=== PATIENT | male | born 1955 | race Caucasian/White ===

== ENCOUNTER 2019-09-16 00:09 | Inpatient (IN) | payer OTHER ==
[~2019-09-16] VITALS: Ht 172.7 cm; Wt 109.8 kg
[2019-09-16] VITALS (17 sets, daily range): BP systolic 126–177; BP diastolic 61–115
[2019-09-16] MEDS ORDERED: ASPIR 8181 M1 PO (00:20)
[2019-09-16] MEDS ORDERED: NORVASC10 MG PO (00:21)
[2019-09-16] MEDS ORDERED: ZYRTEC10 M5 PO (00:21)
[2019-09-16] MEDS ORDERED: NAPROSYN500 M1 PO (00:22)
[2019-09-16 00:34] LABS: ABSOLUTE BASOPHILS 0.1 thou/uL (0.0-0.2); ABSOLUTE EOSINOPHILS 0.1 thou/uL (0.0-0.7); ABSOLUTE LYMPHOCYTES 2.8 thou/uL (0.8-5.3); ABSOLUTE MONOCYTES 0.8 thou/uL (0.0-1.2); EOSINOPHILS 2.1 %; HEMATOCRIT 45.1 % (42.0-52.0); MCH 30.9 pg (26.0-34.0); MCHC 35.4 g/dL (28.0-37.0); MCV 87.3 fL (80.0-100.0); MONOCYTES 12.1 %; NUCLEATED RBCS 0 /100WBC; PLATELET COUNT* 251 thou/uL (150-400); POLYS 43.8 %; RBC 5.17 mil/uL (4.50-6.00); RDW-CV 13.4 % (10.5-14.5); WBC 6.8 thou/uL (4.0-11.0)
[2019-09-16 00:35] LABS: URINE BILIRUBIN NEGATIVE (Negative); URINE BLOOD NEGATIVE (Negative); URINE CLARITY CLEAR; URINE COLOR YELLOW; URINE GLUCOSE-RANDOM NEGATIVE (Negative); URINE KETONES NEGATIVE (Negative); URINE LEUKOCYTES-REFLEX NEGATIVE (Negative); URINE NITRITE-REFLEX NEGATIVE (Negative); URINE PROTEIN NEGATIVE (Negative); URINE UROBILINOGEN 0.2 E.U./dl (0.2-1.0)
[2019-09-16 00:39] LABS: CALCIUM 8.9 mg/dL (8.5-10.1); CREATININE 1.3 mg/dL (0.6-1.3); POTASSIUM 3.4 mmol/L (3.5-5.1)
[2019-09-16 00:49] LABS: ALBUMIN 4.8 g/dL (3.4-5.0); TOTAL BILIRUBIN 0.5 mg/dL (<0.1-1.0); TOTAL PROTEIN 8.3 g/dL (6.4-8.2)
[2019-09-16 00:51] LABS: PROTIME 10.5 Seconds (9.20-11.50)
--- NOTE | 2019-09-16 13:10 | CARD ---
[facility] [address] [place] [address] CARDIAC CATH REPORT Name: JEAN-CLAUDERANDA Kavita Room: [address] IN [facility]#: [id number] Admission: 09/16/19 Attend Phys: Edmund Loya Discharge: Date of : 59 Report #: [id number] THIS REPORT FOR: //name// APPROVED REPORT Study performed: 09/16/2019 10:28:50 Patient Details Patient Status: In-Patient Room #: Event Personnel Dr. Weinberg Procedures Performed Left heart catheterization left ventriculography selective coronary arteriography and percutaneous intervention with deployment of sequential drug-eluting stents at the site of 90% mid LAD stenosis Indication Non-STEMI , Arrhythmia Risk Factors Family History, Hypercholesterolemia Admission/Lab Medications/Medications given during procedure Angiomax bolus and infusion Procedure Narrative The patient was brought electively to the Cardiac Catheterization Laboratory and was prepped and draped in a sterile manner. The right femoral was infiltrated with 2% Lidocaine subcutaneous anesthesia. A 6 Romansh sheath was inserted into the right femoral artery. Coronary angiography was performed using coronary diagnostic catheters. The right coronary system was accessed and visualized with a Diagnostic catheter. The left coronary system was accessed and visualized with a Diagnostic catheter. The left ventricle was accessed and visualized with a Diagnostic catheter. Left ventricular/Aortic Valve gradient assessed via catheter pullback. Left ventriculogram was performed in STEPHEN projection. Pre-demployment femoral angiogram was performed . Closure device was deployed with a 6 Fr Angioseal. There was no hematoma. Diagnostic Cath Left Main 0% narrowing [facility] [address] [place] [address] CARDIAC CATH REPORT Name: RANDA BERMEO Room: [address] IN [facility]#: [id number] Admission: 09/16/19 Attend Phys: Edmund Loya Discharge: Date of : 59 Report #: [id number] LAD 90% mid vessel stenosis with 50% distal LAD narrowing Circumflex Nondominant vessel with 50% proximal and 50% narrowing of the midportion of the prominent marginal branch Right Coronary Dominant vessel with 40% mid vessel narrowing Left Ventriculography The left ventricle is normal in size with slightly decreased contractility. The left ventricular ejection fraction is estimated to be 50%. Left ventricular wall motion abnormalities are present. There is no mitral insufficiency. Mild anteroapical hypokinesis is noted. Hemodynamics The aortic pressure is 140/70 mmHg with a mean of 84 mmHg. The left ventricular end diastolic pressure is 22 mmHg. There was no gradient across the aortic valve upon pullback. PCI Technique Lesion Anticoagulation was achieved with Angiomax. Percutaneous coronary intervention was performed on the mid LAD. The lesion stenosis prior to intervention was 90% with ELEN 3 flow. A 6 Romansh XB LAD 4.0 Guide Catheter was used to engage the left ostium. A 014 [employer] flex Interventional Guidewire was used to cross the lesion. STENT DEPLOYMENT A drug-eluting stent 2.5 x 18 hoda, 2.25x8 was inserted and inflated up to 14atm for 15seconds. POST STENT DEPLOYMENT BALLOON DILATION A Balloon catheter 2.5 x 12 NC trek was inserted and inflated up to 12-18atm for 15seconds. Final angiography reveals 0 % stenosis with ELEN 3 flow. Conclusion #1 significant coronary artery disease characterized by the following: A 90% mid LAD stenosis with 50% distal LAD narrowing B tandem 50% proximal and mid vessel stenosis in a prominent marginal branch of the nondominant circumflex C dominant right coronary artery with 40% [place] [address] CARDIAC CATH REPORT Name: RANDA BERMEO Room: [address] IN [facility]#: [id number] Admission: 09/16/19 Attend Phys: Edmund Loya Discharge: Date of : 59 Report #: [id number] #2 mild impairment in global LV function, estimate ejection fraction being 50% with anteroapical hypokinesis #3 moderate elevation of left ventricular end-diastolic pressure at rest #4 successful percutaneous coronary intervention with deployment of sequential drug-eluting stents at the site of 90% mid LAD stenosis with 0% residual narrowing and ELEN-3 flow to the distal vessel Recommendations Cardiac Rehabilitation Referral Cardiac Risk Reduction Program Aggressive Medical Therapy Medications Administered Aspirin (any) Prasugrel Diagnostic Cath Approved by: Brian Weinberg MD Date/Time: 09/16/2019 13:07:54 <ELECTRONICALLY SIGNED> By: Brian Weinberg MD, [facility] 09/16/191309 09 09Brian Weinberg MD, FAC /INF
[2019-09-17 03:55] VITALS: BP 146/90
[2019-09-17 05:04] LABS: ABSOLUTE EOSINOPHILS 0.2 thou/uL (0.0-0.7); ABSOLUTE LYMPHOCYTES 2.3 thou/uL (0.8-5.3); ABSOLUTE MONOCYTES 1.1 thou/uL (0.0-1.2); ABSOLUTE NEUTROPHILS 4.6 thou/uL (1.6-8.1); BASOPHILS 0.4 %; EOSINOPHILS 1.9 %; HEMATOCRIT 40.5 % (42.0-52.0); MCH 30.7 pg (26.0-34.0); MCHC 34.7 g/dL (28.0-37.0); MCV 88.5 fL (80.0-100.0); MONOCYTES 13.4 %; MPV 9.2 fl. (7.2-11.1); NUCLEATED RBCS 0 /100WBC; PLATELET COUNT* 220 thou/uL (150-400); POLYS 56.3 %; RBC 4.57 mil/uL (4.50-6.00); RDW-CV 13.2 % (10.5-14.5); WBC 8.3 thou/uL (4.0-11.0)
[2019-09-17 05:17] LABS: ALBUMIN 3.8 g/dL (3.4-5.0); CALCIUM 8.5 mg/dL (8.5-10.1); POTASSIUM 3.2 mmol/L (3.5-5.1); TOTAL PROTEIN 6.7 g/dL (6.4-8.2)
[2019-09-17 05:31] LABS: CHOLESTEROL 155 mg/dL (<200); HDL CHOLESTEROL 42 mg/dL (>40); LDL CHOLESTEROL 93 mg/dL (<100); TC:HDL 3.7 Ratio (Not establshd); TRIGLYCERIDE 101 mg/dL (<150); VLDL 20 mg/dL (<40)
[2019-09-17 05:41] LABS: SERUM ASSESSMENT CLEAR
[2019-09-17 06:05] LABS: TROPONIN-I LEVEL 13.71 ng/mL (<0.06)
[2019-09-17 09:00] VITALS: BP 135/91
[2019-09-17 09:32] VITALS: BP 135/91
--- NOTE | 2019-09-17 11:10 | CON ---
[address] [address] CONSULTATION Name: RANDA BERMEO Room: [address] IN .R.#: [id number] Admission: 09/16/19 Attend Phys: Edmund Loya Discharge: Date of : 59 Report #: [id number] THIS REPORT FOR: //name// CC: BLAKE physician/PCP Osman Sheppard DATE OF SERVICE: 09/16/2019 HISTORY OF PRESENT ILLNESS: The patient is a 64-year-old white male, who I was asked to see in the hospital after he complained of chest pain. The patient has no previous history of heart disease. He does try to exercise on a regular basis. He was doing well until 3 nights ago, he went to bed, awakened during the night to go to the bathroom, felt a pressure in his chest. It lasted about an hour and it went away. At the next time, he again had an episode of discomfort in his chest, went into his neck. It lasted about an hour and resolved. Last night, he went to bed about midnight. He woke up an hour later with discomfort in his chest, went into his neck. Denies shortness of breath, diaphoresis, nausea. Denied the pain being related to the food. He has had no fever, cough, bleeding. His brought him to the Emergency Room. He has had no further chest pain since that time. He denies exertional dyspnea, palpitations, syncope, peripheral edema. PAST MEDICAL HISTORY: He has had previous removal of a skin cancer, tonsillectomy, vasectomy, ganglion cyst removal. He has a history of hypertension. MEDICATIONS: Include Norvasc, Zyrtec, Naprosyn, aspirin. ALLERGIES: He has previous INTOLERANCE TO CEPHALEXIN. FAMILY HISTORY: Positive for heart disease. SOCIAL HISTORY: He is . He and his live here in [place]. 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 No smoking. Rarely drinks alcohol. REVIEW OF SYSTEMS: He has had no history of stroke, asthma, peptic ulcer disease, liver disease, kidney disease, skin problems, psychiatric illness. PHYSICAL EXAMINATION: GENERAL: Revealed a middle-aged male, lying in bed, he appeared in no distress. VITAL SIGNS: He had a blood pressure of 140/80, pulse is 60. He is afebrile. HEENT: He was anicteric. Conjunctivae are pink. Mucous membranes moist. NECK: Veins nondistended. No carotid bruits. Neck supple. CHEST: Clear to auscultation. CARDIOVASCULAR: [place] [address] CONSULTATION Name: JEAN-CLAUDERANDA Kavita Room: [address] IN ..#: [id number] Admission: 09/16/19 Attend Phys: Edmund Loya Discharge: Date of : 59 Report #: [id number] ABDOMEN: Soft. EXTREMITIES: Had no edema. SKIN: Warm and dry. NEUROLOGIC: Nonfocal. PSYCHIATRIC: Appropriate. RADIOLOGICAL DATA: His ECG on admission showed a sinus rhythm, PAC. There was nonspecific T-wave changes. Followup ECG showed a sinus carmen with again nonspecific T-wave changes. His lab work last night, he had a portable chest x-ray that showed mild cardiomegaly, no pulmonary edema. LABORATORY DATA: Sodium of 144, potassium of 3.4, creatinine 1.3, glucose 109. On admission last night, his troponin is 0.17, today it is 2.15. White blood cell count of 6.8, hemoglobin 16. His urinalysis last night, negative for protein. IMPRESSION AND RECOMMENDATIONS: 1. Non-ST elevation myocardial infarction. Recommend cardiac catheterization. 2. Hypertension. The patient is on a calcium alessandra. 3. History of removal of a skin cancer. <ELECTRONICALLY SIGNED> By: Juwan Gutierrez MD, [facility] 09/17/19 1110 0838 [id number] Gutierrez MD, FACC /nt
--- NOTE | 2019-09-17 11:15 | EKG ---
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
--- NOTE | 2019-09-17 11:15 | EKG ---
[place] [address] ELECTROCARDIOGRAM REPORT Name: RANDA BERMEO Room: [address] ADM IN [facility].#: [id number] Admission: 09/16/19 Attend Phys: Edmund Loya Discharge: Date of : 59 Report #: [id number] THIS REPORT FOR: //name// [facility] ED Test Date: 2019-09-16 Test Time: 00:14:50 Pat Name: RANDA BERMEO Department: Room: [facility] Gender: M Traffic Rate Computer: MARIE : 1955 Requested By: Latia Monique Order Number: [id number] MD: Juwan Gutierrez Measurements Intervals [place] Rate: 63 P: 27 ID: 199 QRS: -23 QRSD: 100 T: -19 QT: 425 QTc: 436 Interpretive Statements Sinus rhythm supraventricular premature complex Borderline left axis deviation Abnormal R-wave progression, late transition Nonspecific T abnormalities, inferior leads No previous ECG available for comparison Electronically Signed On 09-17-2019 11:15:15 TRANSFERRER by Juwan Gutierrez [email or web address] <ELECTRONICALLY SIGNED> By: Juwan Gutierrez MD, FAC 09/17/19 1115 0014 0014 Juwan Gutierrez MD, [facility] /EPI
--- NOTE | 2019-09-17 11:21 | EKG ---
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 Juwan Gutierrez MD, FACC /EPI
--- NOTE | 2019-09-17 11:26 | EKG ---
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
[2019-09-17 16:33] VITALS: BP 154/81
[2019-09-17 20:00] VITALS: BP 142/81
[2019-09-18 00:21] VITALS: BP 141/80
[2019-09-18 04:01] VITALS: BP 127/76
[2019-09-18 07:54] VITALS: BP 145/91
[2019-09-18] MEDS ORDERED: LIPITOR40 MG PO (09:39)
[2019-09-18] MEDS ORDERED: LISINOPRIL5 MG PO (09:40)
[2019-09-18] MEDS ORDERED: EFFIENT10 MG PO (09:41)
[2019-09-18 09:42] VITALS: BP 145/91
[2019-09-18 10:25] VITALS: BP 145/91
[2019-09-18 11:28] VITALS: BP 145/91
== END 2019-09-18 11:42 | disposition home or self-care (01) | DRG 246 ==
LOC: M.ERS 00:09 → M.TBA-ER 02:26 → M.2W 02:26
PROVIDERS: Emergency Medicine; Internal Medicine; Internal Medicine Cardiovascular Disease; ADMIT Internal Medicine
PROC: 4A023N7 Measurement of Cardiac Sampling and Pressure, Left Heart, Percutaneous Approach (ICD-10-PCS; principal; 2019-09-16)
PROC: 027035Z Dilation of Coronary Artery, One Artery with Two Drug-eluting Intraluminal Devices, Percutaneous Approach (ICD-10-PCS; principal; 2019-09-16)
PROC: B41F1ZZ Fluoroscopy of Right Lower Extremity Arteries using Low Osmolar Contrast (ICD-10-PCS; principal; 2019-09-16)
PROC: B2111ZZ Fluoroscopy of Multiple Coronary Arteries using Low Osmolar Contrast (ICD-10-PCS; principal; 2019-09-16)
PROC: B2151ZZ Fluoroscopy of Left Heart using Low Osmolar Contrast (ICD-10-PCS; principal; 2019-09-16)
DX: I21.4 Non-ST elevation (NSTEMI) myocardial infarction (principal); I50.31 Acute diastolic (congestive) heart failure; I11.0 Hypertensive heart disease with heart failure; E66.9 Obesity, unspecified; Z85.828 Personal history of other malignant neoplasm of skin; Z98.52 Vasectomy status; Z79.899 Other long term (current) drug therapy; Z88.1 Allergy status to other antibiotic agents; Z79.84 Long term (current) use of oral hypoglycemic drugs; Z79.82 Long term (current) use of aspirin; Z68.36 Body mass index [BMI] 36.0-36.9, adult

== ENCOUNTER → 2020-01-01 | Outpatient (CLI) | payer OTHER ==
[~2020-01-01] MED LIST: ASPIR 8181 M1 PO; EFFIENT10 MG PO; LIPITOR40 MG PO; LISINOPRIL5 MG PO; NAPROSYN500 M1 PO; NORVASC10 MG PO; ZYRTEC10 M5 PO
--- NOTE | 2020-01-09 23:31 | SLEEP ---
[address] [address] SLEEP STUDY REPORT Name: RANDA BERMEO Room: [facility]#: [id number] Admission: 01/01/20 Attend Phys: Kaylene Oreilly RN Discharge: Date of : 59 Report #: [id number] THIS REPORT FOR: //name// CC: RANDA Oreilly This study has been reviewed in its entirety by a board certified sleep specialist DATE OF SERVICE: 01/01/2020 SLEEP STUDY The patient is a 64-year-old who weighs 234 pounds with a BMI of 35.6. The patient's Rowlett score was 4. The patient underwent home sleep study performed by [facility]. Total recording time was 418 minutes. During the night of the study, the patient had 5 obstructive apneas, 7 central apneas, no mixed apneas and 59 hypopneas. The patient's AHI was 10.4 per hour with a supine AHI of 10.2 per hour. Nocturnal oximetry study revealed an average oxygen saturation of 93% with lowest of 88%. Mean heart rate 48 beats per minute with a maximum 85 beats per minute. IMPRESSION: 1. Mild obstructive sleep apnea at an AHI of 10.4 per hour. 2. No clinically significant nocturnal hypoxia. RECOMMENDATIONS: 1. The patient has mild sleep apnea. I would recommend weight loss as initial form of treatment. 2. If the patient remains clinically symptomatic or has comorbid conditions, then consider treatment of sleep apnea with either CPAP versus oral appliance. 3. Avoid ROUSTABOUT CREW PUSHER depressants. 4. Cautioned regarding driving until symptoms of sleep apnea resolve with the above recommendations. <ELECTRONICALLY SIGNED> By: Ceasar Joseph MD 01/09/20 2331 1503 1616Aman Ashley Joseph MD /nt
== END ==
LOC: M.SLEEPLAB 16:26
DX: G47.30 Sleep apnea, unspecified (principal); I10 Essential (primary) hypertension

== ENCOUNTER 2020-01-12 07:45 | Observation (INO) | payer OTHER ==
[2020-01-12] VITALS (10 sets, daily range): BP systolic 119–155; BP diastolic 75–96
[~2020-01-12] VITALS: Ht 172.7 cm; Wt 104.3 kg
[~2020-01-12 07:45] MED LIST changes: +CLONIDINE HCL0.2 M2 PO; +COZAAR 25 MG TA25 M1 PO; +HYDROCHLOROTHIA25 M2 PO; +PROCARDIA XL30 MG PO
[2020-01-12 08:41] LABS: APTT 26.5 Seconds (25.0-31.3); INR 1.1; PROTIME 10.8 Seconds (9.20-11.50)
[2020-01-12 08:48] LABS: HEMATOCRIT 42.6 % (42.0-52.0); MCH 30.1 pg (26.0-34.0); MCHC 35.2 g/dL (28.0-37.0); MCV 85.3 fL (80.0-100.0); MPV 9.4 fl. (7.2-11.1); RDW-CV 13.5 % (10.5-14.5); WBC 6.1 thou/uL (4.0-11.0)
[2020-01-12 09:04] LABS: ANION GAP 9 mmol/L (7-16); BUN 25 mg/dL (7-18); CALCIUM 8.4 mg/dL (8.5-10.1); CHLORIDE 105 mmol/L (98-107); CO2 29 mmol/L (21-32); CREATININE 1.4 mg/dL (0.6-1.3); GLUCOSE 110 mg/dL (70-99); POTASSIUM 3.4 mmol/L (3.5-5.1); SODIUM 143 mmol/L (136-145)
[2020-01-12 09:09] LABS: ALBUMIN 4.2 g/dL (3.4-5.0); ALKALINE PHOSPHATASE 74 U/L (46-116); CHOLESTEROL 118 mg/dL (<200); HDL CHOLESTEROL 45 mg/dL (>40); LDL CHOLESTEROL 57 mg/dL (<100); SGOT 27 U/L (15-37); SGPT 36 U/L (30-65); TC:HDL 2.6 Ratio (Not establshd); TOTAL BILIRUBIN 0.9 mg/dL (<0.1-1.0); TOTAL PROTEIN 7.7 g/dL (6.4-8.2); TRIGLYCERIDE 81 mg/dL (<150); VLDL 16 mg/dL (<40)
[2020-01-12 09:11] LABS: SERUM ASSESSMENT Clear
--- NOTE | 2020-01-12 14:30 | NUR ---
PT TO ROOM 232 VIA CART. CATH SITE SOFT WITHOUT BLEEDING. PT INSTRUCTED ON IMMOBILIZATION. CALL LIGHT WITHIN REACH,ORIENTED TO ROOM. AT BS
--- NOTE | 2020-01-12 16:49 | EKG ---
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: : 1955 Requested By: Brian Weinberg Order Number: [id number] Kevin MD: Brian Weinberg Measurements Intervals [place] Rate: 51 P: -2 MD: 207 QRS: -21 QRSD: 99 T: 85 QT: 469 QTc: 432 Interpretive Statements Sinus rhythm Borderline left axis deviation Compared to ECG 09/17/2019 03:03:58 No significant changes Electronically Signed On 01-12-2020 16:48:17 CDT by Brian Weinberg [email or web address] <ELECTRONICALLY SIGNED> By: Brian Weinberg MD, [facility] 01/12/20 1648 0835 0835 Brian Weinberg MD, [facility] /EPI
--- NOTE | 2020-01-12 16:51 | EKG ---
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: : 1955 Requested By: Brian Weinberg Order Number: [id number] Kevin MD: Brian Weinberg Measurements Intervals [place] Rate: 51 P: -24 CA: 225 QRS: 2 QRSD: 100 T: 81 QT: 488 QTc: 450 Interpretive Statements Sinus rhythm Prolonged CA interval Compared to ECG 09/17/2019 03:03:58 First degree AV block now present Electronically Signed On 01-12-2020 16:50:33 CDT by Brian Weinberg [email or web address] <ELECTRONICALLY SIGNED> By: Brian Weinberg MD, [facility] 01/12/20 1650 1119 1119 Brian Weinberg MD, [facility] /EPI
--- NOTE | 2020-01-12 17:50 | NUR ---
PT UP TO UNIT THIS AFTERNOON AFTER HEART CATH. PT UP IN ROOM AFTER CATH,NO BLEEDING OR HEMATOMA. NSR ON MONITOR. DENIES CP OR SOA
--- NOTE | 2020-01-12 20:00 | NUR ---
RECEIVED REPORT AND ASSUMED CARE OF PT, ASSESSMENT COMPLETED. PT SITTING UP IN CHAIR VISITING WITH . RT GROIN SITE CLEAN, DRY, INTACT AND NO HEMATOMA. DENIES PAIN OR DISCOMFORT. TELEMETRY ON SHOWING SB. WILL CONT TO MONITOR AND ASSIST NEEDED.
[2020-01-13 00:35] VITALS: BP 114/61
[2020-01-13 04:08] LABS: HEMATOCRIT 40.5 % (42.0-52.0); HEMOGLOBIN 14.3 gm/dL (14.0-18.0); MCH 30.1 pg (26.0-34.0); MCHC 35.2 g/dL (28.0-37.0); MCV 85.5 fL (80.0-100.0); MPV 9.2 fl. (7.2-11.1); RBC 4.74 mil/uL (4.50-6.00); RDW-CV 13.3 % (10.5-14.5); WBC 7.2 thou/uL (4.0-11.0)
[2020-01-13 04:30] VITALS: BP 125/80
[2020-01-13 04:30] LABS: ALBUMIN 3.8 g/dL (3.4-5.0); CALCIUM 8.6 mg/dL (8.5-10.1); CREATININE 1.3 mg/dL (0.6-1.3); POTASSIUM 3.4 mmol/L (3.5-5.1); TOTAL BILIRUBIN 0.9 mg/dL (<0.1-1.0); TOTAL PROTEIN 6.9 g/dL (6.4-8.2)
[2020-01-13 04:52] LABS: TROPONIN-I LEVEL 1.08 ng/mL (<0.06)
--- NOTE | 2020-01-13 05:42 | NUR ---
SLEPT WELL TONIGHT. RT GROIN REMAINS WITHOUT INCIDENT. GAIT STEADY TO BR AND BACK. NO CHANGE IN ASSESSMENT. HS GOALS OF REST AND SAFETY ACHIEVED. HOURLY ROUNDING OBSERVED.
[2020-01-13 08:00] VITALS: BP 145/95
[2020-01-13 11:13] VITALS: BP 137/75
[2020-01-13 11:22] VITALS: BP 137/75
--- NOTE | 2020-01-13 11:39 | CARD ---
[address] [address] CARDIAC CATH REPORT Name: RANDA BERMEO Room: [address] [place] [facility]#: [id number] Admission: 01/12/20 Attend Phys: Brian Weinberg MD, Discharge: Date of : 59 Report #: [id number] THIS REPORT FOR: //name// cc: Randa London Richard A. DO ~ THIS REPORT FOR: //name// APPROVED REPORT Study performed: 01/12/2020 08:58:31 Patient Details Patient Status: Out-Patient Room #: The patient is a 65 year-old male Event Personnel Everton Roberts RTR Monitor, Lizabeth Rodriguez RN RN, Zeus Oliver Holkins, John Plastic Tool Maker, Jc Bowling RN lugger Performed Left Heart Cath Coronaries, Bypass Grafts [id number] LHCCORCABG FARHAT Place w/wo Plasty Single RAMUS Inter [id number] FARHAT Place w/wo Plasty Addl BR OM 1 C9601 DESADDL Hemostasis w/ Angioseal Indication Non-STEMI , Chest pain Risk Factors Hypercholesterolemia, Hypertension Previous Procedures/Diagnoses Previous PCI, Previous [place] Admission/Lab Medications/Medications given during procedure Midazolam (Versed) IV 2 mg, Fentanyl IV 25 mcg, Lidocaine Subcut 20 ml, Angiomax IV 16 ml, Angiomax IV 36.5 ml per hr Procedure Narrative The patient was brought electively to the Cardiac Catheterization Laboratory and was prepped and draped in a sterile manner. The right femoral was infiltrated with 2% Lidocaine subcutaneous anesthesia. A Camargo 6 FR sheath was inserted into the right femoral artery. Coronary angiography was performed [place] [address] CARDIAC CATH REPORT Name: RANDA BERMEO Room: [address]#: [id number] Admission: 01/12/20 Attend Phys: Brian Weinberg MD, Discharge: Date of : 59 Report #: [id number] catheters. The right coronary system was accessed and visualized with a Diagnostic JR4 6Fr catheter. The left coronary system was accessed and visualized with a Diagnostic JL4 6Fr catheter. The left ventricle was accessed and visualized with a Diagnostic Pigtail Angeled 6Fr catheter. Left ventricular/Aortic Valve gradient assessed via catheter pullback. Pre-demployment femoral angiogram was performed . Closure device was deployed with a 6 Fr Angioseal. The patient tolerated the procedure well and there were no complications associated with the procedure. There was no hematoma. Intraoperative Conscious Sedation Sedation start time: 952 Case end Time: 1044 Fentanyl 25 mcg Versed 2 mg Fluoro Time: 11.3 minutes Dose: DAP 233863 cGycm2 2423.76 mGy Contrast Type and Amount: Visipaque 285 ml Diagnostic Cath Left Main 0% narrowing LAD Widely patent proximalmid LAD stent with 0% narrowing Circumflex 80% tubular stenosis of the first marginal branch of the nondominant circumflex Right Coronary Dominant vessel with 40% mid vessel narrowing and 50% tubular distal narrowing Ramus 90% proximal stenosis Left Ventriculography The left ventricle is normal in size with normal contractility. The left ventricular ejection fraction is estimated to be 55-60%. Left ventricular wall motion abnormalities are present. There is no mitral insufficiency. Subtle anterior hypokinesis is noted Hemodynamics The aortic pressure is 151/79 mmHg with a mean of 106 mmHg. The left ventricular pressure is 145/6 mmHg with a mean of mmHg. The left ventricular end diastolic pressure is 17 mmHg. PCI Technique Lesion Percutaneous coronary intervention was performed on the ramus intermedius segment. The lesion stenosis prior to intervention was 90% with ELEN 3 flow. A 6F XB LAD 4.0 Guide Catheter was used to [place] [address] CARDIAC CATH REPORT Name: RANDA BERMEO Room: [address]#: [id number] Admission: 01/12/20 Attend Phys: Brian Weinberg MD, Discharge: Date of : 59 Report #: [id number] BALLOON DILATION A Balloon catheter Trek RX 2.25 X 8 was inserted and inflated up to 6.00atm for 6seconds. Additional Inflation: 10.00atm for 8seconds. Additional Inflation: 12.00atm for 10seconds. STENT DEPLOYMENT A drug-eluting stent Steven RX Stent 2.0X15mm was inserted and inflated up to 10.00atm for 8seconds. Additional Inflation: 15.00atm for 6seconds. Additional Inflation: 15.00atm for 7seconds. Final angiography reveals 0 % stenosis with ELEN 3 flow. PCI Technique Lesion 2 Percutaneous Coronary Intervention was performed on the first obtuse marginal branch segment. The lesion stenosis prior to intervention was 80% with ELEN 2 flow. A 6F XB LAD 4.0 Guide Catheter was used to engage the Left ostium. A IG: [employer] 190cm Interventional Guidewire was used to cross the lesion. Balloon Dilation A Balloon catheter Mini Trek RX 2.0 X 15 was inserted and inflated up to 12.00atm for 9seconds. Additional Inflation: 15.00atm for 8seconds. Stent Deployment A drug-eluting stent Linwood RX Stent 2.38E40xh was inserted and inflated up to 12.00atm for 9seconds. Additional Inflation: 15.00atm for 8seconds. Final angiography reveals 10 % stenosis with ELEN 3 flow. Conclusion #1 coronary artery disease characterized by the following: A widely patent proximalmid LAD stent B 80% tubular stenosis of the prominent first marginal branch of the nondominant circumflex C 40% mid right coronary narrowing with 50% distal narrowing B 90% stenosis of the proximal portion of the ramus intermedius #2 normal global left ventricular systolic function estimate ejection fraction of 55-60% with very mild mid anterior hypokinesis [address] [address] CARDIAC CATH REPORT Name: RANDA BERMEO Room: [address] [place]#: [id number] Admission: 01/12/20 Attend Phys: Brian Weinberg MD, Discharge: Date of : 59 Report #: [id number] #3 mild elevation of left ventricular end-diastolic pressure at rest #4 successful percutaneous coronary intervention with deployment of a drug-eluting stent at site of 90% proximal ramus intermedius stenosis with 0% residual narrowing #5 successful percutaneous coronary intervention with deployment of drug-eluting stent at the site of 80% tubular first marginal stenosis with 10% residual narrowing and ELEN-3 flow to the distal vessel Recommendations Cardiac Risk Reduction Program Aggressive Medical Therapy Medications Administered Aspirin (any) Prasugrel Diagnostic Cath Approved by: Brian Weinberg MD Date/Time: 01/13/2020 11:37:27 <ELECTRONICALLY SIGNED> By: Brian Weinberg MD, [facility] 01/13/20 1138 1138 1138Brian Weinberg MD, FACC /INF
--- NOTE | 2020-01-13 13:23 | D ---
[address] [address] DISCHARGE SUMMARY Name: RANDA BERMEO Room: [address] Aurora Valenzuela#: [id number] Admission: 01/12/20 Attend Phys: Brian Weinberg MD, Discharge: 01/13/20 Date of : 59 Report #: [id number] THIS REPORT FOR: //name// cc: Randa London Richard A. DO ~ THIS REPORT FOR: //name// CC: Brian London DATE OF SERVICE: 01/13/2020 FINAL DISCHARGE DIAGNOSES: 1. Coronary artery disease, status post recent non-ST segment myocardial infarction. 2. Hyperlipidemia. 3. Hypertension. 4. Status post percutaneous coronary intervention previously to the LAD and more recently to the ramus intermedius and obtuse marginal branch of the circumflex. HOSPITAL COURSE: The patient is a 65-year-old male with recent acute coronary syndrome, interrupted by stenting of the LAD. He was also noted to have ramus intermedius and obtuse marginal lesions at that time, which were not approached in the acute setting. He has underlying hypertension and hyperlipidemia. There is also mild weight excess. He presented on 01/11 for recatheterization, which revealed a widely patent proximal-mid LAD stent with 90% ramus intermedius narrowing and 89% stenosis of the first marginal branch of the circumflex. I performed percutaneous coronary intervention, deploying one drug-eluting stent in the ramus intermedius and one in the proximal portion of the first marginal branch of the circumflex. There was good angiographic result with no significant residual narrowing at either side following stent deployment. The patient did well post-procedurally and ambulated in the halls without difficulty. LABORATORY DATA: On 01/12 revealed sodium 144, potassium 3.4, BUN 24, creatinine 1.3, glucose 103. White blood cell count 7200, hemoglobin 14.3, hematocrit 40.5, platelet count 185,000. Troponin gena inconsequentially to 1.08. [place] [address] DISCHARGE SUMMARY Name: LOIDAKavitaRANDA Room: [address] Aurora Valenzuela#: [id number] Admission: 01/12/20 Attend Phys: Brian Weinberg MD, Discharge: 01/13/20 Date of : 59 Report #: [id number] The patient was discharged to home on the following medications: Aspirin 81 mg daily, atorvastatin 40 mg daily, cetirizine or Zyrtec 10 mg daily, clonidine 0.2 mg b.i.d., hydrochlorothiazide 25 mg daily, losartan 100 mg daily, nifedipine or Procardia-XL 30 mg daily, prasugrel 10 mg daily. The patient is scheduled to return to see me in followup on 02/27/2020 at 1000 hours. Therefore, the patient is discharged to home in stable condition on the aforementioned medications with followup as iterated above. <ELECTRONICALLY SIGNED> By: Brian Weinberg MD, FACC 01/13/20 1323 [id number] Weinberg MD, FACC /nt
== END 2020-01-13 12:36 | disposition home or self-care (01) ==
LOC: M.CL 07:45 → M.TBA-CV 11:06 → M.2W 12:26
PROVIDERS: ADMIT Internal Medicine
DX: I21.4 Non-ST elevation (NSTEMI) myocardial infarction (principal); I25.10 Atherosclerotic heart disease of native coronary artery without angina pectoris; I10 Essential (primary) hypertension; E78.5 Hyperlipidemia, unspecified